=== PATIENT | female | born 1965 | race Hispanic/Latino ===

== ENCOUNTER 2019-06-02 22:13 | Emergency (ER) | payer SELFPAY | END 2019-06-02 23:04 | disposition home or self-care (01) | LOC: EDH 22:13 | DX: T16.1XXA Foreign body in right ear, initial encounter (principal); E11.9 Type 2 diabetes mellitus without complications; I10 Essential (primary) hypertension; X58.XXXA Exposure to other specified factors, initial encounter; Y93.89 Activity, other specified; Y92.89 Other specified places as the place of occurrence of the external cause; Y99.8 Other external cause status | CPT/HCPCS: 69200 ==

== ENCOUNTER 2022-12-22 10:14 | Inpatient (IN) | payer OTHER ==
[~2022-12-22] VITALS: Ht 152.4 cm; Wt 87.9 kg
[2022-12-22 11:11] LABS: BASOPHILS % (AUTO) 0.4 % (0.0-5.0); EOSINOPHILS % (AUTO) 2.2 % (0.0-8.0); HEMATOCRIT 37.7 % (36-48); LYMPHOCYTES % (AUTO) 13.3 % (21.0-51.0); MEAN CORPUSCULAR HEMOGLOBIN 27.2 pg (27.0-33.0); MEAN CORPUSCULAR HGB CONC 31.8 g/dL (32.0-36.0); MEAN CORPUSCULAR VOLUME 85.5 fL (79-99); MONOCYTES % (AUTO) 6.5 % (3.0-13.0); NEUTROPHILS % (AUTO) 77.3 % (40.0-77.0); PLATELET COUNT (AUTO) 272 K/uL (130-400); RED BLOOD CELL COUNT(AUTO) 4.41 MIL/uL (4.00-5.50); RED CELL DISTRIBUTION WIDTH 17.4 % (11.0-15.5); WHITE BLOOD COUNT (AUTO) 6.8 K/uL (4.8-10.8)
[2022-12-22 11:17] LABS: ALBUMIN 2.3 g/dL (3.5-5.0); TOTAL PROTEIN, SERUM 6.4 g/dL (6.0-8.3)
[2022-12-22 11:20] LABS: CREATININE 9.6 mg/dL (0.5-1.5)
[2022-12-22] MEDS ORDERED: FUROSEMIDE 40MG VIAL IV SCH ×2 (12:00→15:30)
[2022-12-22] MEDS ORDERED: ISOSORBIDE MONO 30MG SR TAB PO ONE (14:00)
[2022-12-22 14:40] LABS: INR 0.95 (0.85-1.15); PROTHROMBIN TIME 10.4 SEC (9.6-11.6)
[2022-12-22 15:16] LABS: THYROID STIMULATING HORMONE 4.95 uIU/mL (0.36-3.74)
[2022-12-22 15:17] LABS: ABG BASE EXCESS -6.7 mmol/L (-2.0-3.0); ABG HCO3 18.8 mmol/L (21.0-28.0); ABG OXYGEN SATURATION 94.8 % (95.0-99.0); ABG PCO2 38 mmHg (32-45)
[2022-12-22] MEDS: AMLODIPINE 5 MG TAB PO SCH ×2 (15:21→21:03)
[2022-12-22] MEDS: HYDRALAZINE 25MG TABLET PO SCH ×2 (15:21→21:21)
[2022-12-22] MEDS: METOLAZONE 2.5 MG TABLET PO SCH (15:21)
[2022-12-22] MEDS: NITROGLYCERIN 1GM OINT 1 INCH/1GM TD SCH ×2 (15:22→21:03)
[2022-12-22 15:43] LABS: APPEARANCE,URINE CLEAR (CLEAR); BILIRUBIN,URINE NEGATIVE (NEGATIVE); COLOR,URINE LIGHT-YELLOW (YELLOW); GLUCOSE, URINE (UA) 30 mg/dL (NEGATIVE); KETONES,URINE NEGATIVE (NEGATIVE); LEUKOCYTE ESTERASE ,URINE NEGATIVE Leu/uL (NEGATIVE); NITRATE,URINE NEGATIVE (NEGATIVE); OCCULT BLOOD,URINE SMALL (NEGATIVE); PH,URINE 6.5 (5.0-8.0); PROTEIN,URINE 200 mg/dL (NEGATIVE); UROBILINOGEN,URINE 0.2 mg/dL (0.2-1.0)
[2022-12-22 15:49] LABS: MUCUS,URINE RARE LPF (None Seen); SQUAMOUS EPITHELIAL CELL,UR RARE /HPF (0-2)
[2022-12-22] MEDS: FUROSEMIDE 40MG VIAL IV SCH (21:02)
[2022-12-22] MEDS: FAMOTIDINE 20MG TAB PO SCH (21:03)
[2022-12-22] MEDS: HEPARIN 5,000 UNIT VIAL SQ SCH (21:03)
[2022-12-23] VITALS (7 sets, daily range): BP systolic 143–164; BP diastolic 65–91
[2022-12-23] MEDS: FUROSEMIDE 40MG VIAL IV SCH ×3 (03:07→20:25)
[2022-12-23 03:51] LABS: BASOPHILS % (AUTO) 0.5 % (0.0-5.0); EOSINOPHILS % (AUTO) 2.3 % (0.0-8.0); HEMATOCRIT 34.4 % (36-48); LYMPHOCYTES % (AUTO) 15.2 % (21.0-51.0); MEAN CORPUSCULAR HEMOGLOBIN 27.2 pg (27.0-33.0); MEAN CORPUSCULAR HGB CONC 31.1 g/dL (32.0-36.0); MEAN CORPUSCULAR VOLUME 87.5 fL (79-99); MONOCYTES % (AUTO) 7.2 % (3.0-13.0); NEUTROPHILS % (AUTO) 74.3 % (40.0-77.0); PLATELET COUNT (AUTO) 237 K/uL (130-400); RED BLOOD CELL COUNT(AUTO) 3.93 MIL/uL (4.00-5.50); RED CELL DISTRIBUTION WIDTH 17.2 % (11.0-15.5); WHITE BLOOD COUNT (AUTO) 6.1 K/uL (4.8-10.8)
[2022-12-23 04:07] LABS: % IRON SATURATION 16.9 % (22-44)
[2022-12-23 04:22] LABS: ALBUMIN 2.2 g/dL (3.5-5.0); MAGNESIUM 2.7 mg/dL (1.80-2.40); PHOSPHORUS 7.4 mg/dL (2.5-4.9); TOTAL PROTEIN, SERUM 6.1 g/dL (6.0-8.3)
[2022-12-23 04:30] LABS: B-TYPE NATRIURETIC PEPTIDE 1330 pg/mL (0-100)
[2022-12-23 04:49] LABS: POTASSIUM 5.1 mmol/L (3.5-5.1)
[2022-12-23 04:51] LABS: CREATININE 9.5 mg/dL (0.5-1.5)
[2022-12-23] MEDS: NITROGLYCERIN 1GM OINT 1 INCH/1GM TD SCH ×2 (05:17→14:03)
[2022-12-23] MEDS: METOLAZONE 2.5 MG TABLET PO SCH (07:29)
[2022-12-23] MEDS: HEPARIN 5,000 UNIT VIAL SQ SCH ×2 (08:12→20:29)
[2022-12-23] MEDS: AMLODIPINE 5 MG TAB PO SCH ×2 (08:15→20:25)
[2022-12-23] MEDS: Vitamin B Complex/Vit C/Folic Acid PO SCH (08:15)
[2022-12-23] MEDS: ACETAMINOPHEN 325 MG TAB PO PRN (08:15)
[2022-12-23] MEDS: HYDRALAZINE 25MG TABLET PO SCH ×3 (08:15→20:26)
[2022-12-23] MEDS ORDERED: ISOSORBIDE MONO 30MG SR TAB PO SCH (09:00)
[2022-12-23] MEDS ORDERED: METOLAZONE 2.5 MG TABLET PO SCH (13:30)
[2022-12-23] MEDS: FAMOTIDINE 20MG TAB PO SCH (20:25)
[2022-12-23] MEDS ORDERED: FURO80TA3 PO (20:57)
[2022-12-23] MEDS ORDERED: HYDR-4153 PO (20:57)
[2022-12-23] MEDS ORDERED: SEVE800T7 PO (20:57)
[2022-12-23] MEDS ORDERED: AMLO-258 PO (20:57)
[2022-12-24] MEDS: FUROSEMIDE 40MG VIAL IV SCH ×3 (03:17→20:55)
[2022-12-24 03:37] VITALS: BP 150/79
[2022-12-24 03:50] LABS: BASOPHILS % (AUTO) 0.3 % (0.0-5.0); EOSINOPHILS % (AUTO) 2.7 % (0.0-8.0); HEMATOCRIT 37.1 % (36-48); LYMPHOCYTES % (AUTO) 15.8 % (21.0-51.0); MEAN CORPUSCULAR HEMOGLOBIN 27.2 pg (27.0-33.0); MEAN CORPUSCULAR VOLUME 87.7 fL (79-99); MONOCYTES % (AUTO) 7.1 % (3.0-13.0); NEUTROPHILS % (AUTO) 73.8 % (40.0-77.0); PLATELET COUNT (AUTO) 282 K/uL (130-400); RED BLOOD CELL COUNT(AUTO) 4.23 MIL/uL (4.00-5.50); RED CELL DISTRIBUTION WIDTH 17.4 % (11.0-15.5); WHITE BLOOD COUNT (AUTO) 6.3 K/uL (4.8-10.8)
[2022-12-24 04:00] LABS: POTASSIUM 5.3 mmol/L (3.5-5.1)
[2022-12-24 04:02] LABS: CREATININE 9.5 mg/dL (0.5-1.5)
[2022-12-24 08:42] VITALS: BP 153/77
[2022-12-24] MEDS ORDERED: ISOSORBIDE MONO 60MG SR TAB PO SCH (09:00)
[2022-12-24] MEDS: Vitamin B Complex/Vit C/Folic Acid PO SCH (09:09)
[2022-12-24] MEDS: AMLODIPINE 5 MG TAB PO SCH ×2 (09:09→20:56)
[2022-12-24] MEDS: NA ZIRCON CYCLOSIL(LOKELMA 10GM) PO SCH (09:09)
[2022-12-24] MEDS: HYDRALAZINE 25MG TABLET PO SCH ×3 (09:09→20:56)
[2022-12-24] MEDS: HEPARIN 5,000 UNIT VIAL SQ SCH ×2 (09:11→20:56)
[2022-12-24 12:43] VITALS: BP 170/77
[2022-12-24 16:31] VITALS: BP 162/73
[2022-12-24] MEDS ORDERED: SODIUM BICARBONATE 650 MG TAB PO SCH (17:00)
[2022-12-24] MEDS ORDERED: ISOSORBIDE MONO 30MG SR TAB PO SCH (17:00)
[2022-12-24] MEDS ORDERED: SODIUM BICARBONATE 650 MG TAB PO PRN (17:00)
[2022-12-24] MEDS: SEVELAMER HCL 800 MG TABLET PO SCH (17:29)
[2022-12-24 17:55] LABS: POTASSIUM 5.1 mmol/L (3.5-5.1)
[2022-12-24 17:58] LABS: CREATININE 9.7 mg/dL (0.5-1.5)
[2022-12-24] MEDS ORDERED: HYDRALAZINE 25MG TABLET ONE (19:48)
[2022-12-24 20:22] VITALS: BP 177/77
[2022-12-24] MEDS ORDERED: METOLAZONE 2.5 MG TABLET PO SCH (20:30)
[2022-12-24] MEDS: FAMOTIDINE 20MG TAB PO SCH (20:56)
[2022-12-24 23:53] VITALS: BP 174/79
[2022-12-25] VITALS (7 sets, daily range): BP systolic 144–180; BP diastolic 63–88
[2022-12-25 03:58] LABS: BASOPHILS % (AUTO) 0.6 % (0.0-5.0); EOSINOPHILS % (AUTO) 2.8 % (0.0-8.0); HEMATOCRIT 31.1 % (36-48); LYMPHOCYTES % (AUTO) 20.1 % (21.0-51.0); MEAN CORPUSCULAR HEMOGLOBIN 27.4 pg (27.0-33.0); MEAN CORPUSCULAR HGB CONC 30.9 g/dL (32.0-36.0); MEAN CORPUSCULAR VOLUME 88.9 fL (79-99); MONOCYTES % (AUTO) 7.5 % (3.0-13.0); NEUTROPHILS % (AUTO) 68.6 % (40.0-77.0); PLATELET COUNT (AUTO) 254 K/uL (130-400); RED CELL DISTRIBUTION WIDTH 17.6 % (11.0-15.5); WHITE BLOOD COUNT (AUTO) 5.1 K/uL (4.8-10.8)
[2022-12-25] MEDS: FUROSEMIDE 40MG VIAL IV SCH ×2 (04:04→11:32)
[2022-12-25 04:23] LABS: MAGNESIUM 2.7 mg/dL (1.80-2.40); PHOSPHORUS 7.8 mg/dL (2.5-4.9); TOTAL PROTEIN, SERUM 5.5 g/dL (6.0-8.3)
[2022-12-25 04:29] LABS: CREATININE 9.9 mg/dL (0.5-1.5)
[2022-12-25] MEDS: AMLODIPINE 5 MG TAB PO SCH ×2 (07:47→20:37)
[2022-12-25] MEDS: HYDRALAZINE 25MG TABLET PO SCH ×3 (09:47→20:36)
[2022-12-25] MEDS: Vitamin B Complex/Vit C/Folic Acid PO SCH (09:48)
[2022-12-25] MEDS: SEVELAMER HCL 800 MG TABLET PO SCH ×3 (09:48→17:29)
[2022-12-25] MEDS: ISOSORBIDE MONO 30MG SR TAB PO SCH (09:48)
[2022-12-25] MEDS: HEPARIN 5,000 UNIT VIAL SQ SCH ×2 (09:49→20:37)
[2022-12-25] MEDS: NA ZIRCON CYCLOSIL(LOKELMA 10GM) PO SCH (09:55)
[2022-12-25] MEDS: ACETAMINOPHEN 325 MG TAB PO PRN (10:08)
[2022-12-25] MEDS: CALCIUM AC 667MG CAP PO SCH (17:29)
[2022-12-25] MEDS: BUMETANIDE 2.5MG/10ML VIAL 40 ML IV SCH (17:48)
[2022-12-25] MEDS: CITRIC ACID/SODIUM CITRATE 30 ML UDCUP PO SCH (20:36)
[2022-12-25] MEDS: FAMOTIDINE 20MG TAB PO SCH (20:37)
[2022-12-26 04:09] LABS: MEAN CORPUSCULAR HEMOGLOBIN 27.4 pg (27.0-33.0); MEAN CORPUSCULAR HGB CONC 30.6 g/dL (32.0-36.0); MEAN CORPUSCULAR VOLUME 89.5 fL (79-99); PLATELET COUNT (AUTO) 281 K/uL (130-400); RED BLOOD CELL COUNT(AUTO) 3.91 MIL/uL (4.00-5.50); RED CELL DISTRIBUTION WIDTH 17.8 % (11.0-15.5); WHITE BLOOD COUNT (AUTO) 6.1 K/uL (4.8-10.8)
[2022-12-26 04:14] VITALS: BP 164/76
[2022-12-26 04:27] LABS: PHOSPHORUS 7.8 mg/dL (2.5-4.9); POTASSIUM 4.9 mmol/L (3.5-5.1); URIC ACID 11.5 mg/dL (2.6-7.2)
[2022-12-26 04:28] LABS: CREATININE 9.7 mg/dL (0.5-1.5)
[2022-12-26 05:44] LABS: EOSINOPHILS % (MANUAL) 4 % (1-6); LYMPHOCYTES % (MANUAL) 20 % (22-44); MAN.DIFF COMMENT-IMPRESSION MANUAL DIFFERENTIAL; MONOCYTES % (MANUAL) 1 % (2-9); PLATELET MORPHOLOGY COMMENT ADEQUATE; SEGMENTED NEUTROPHILS % 75 % (40-70)
[2022-12-26 07:35] VITALS: BP 183/76
[2022-12-26] MEDS: NA ZIRCON CYCLOSIL(LOKELMA 10GM) PO SCH (08:00)
[2022-12-26] MEDS: ISOSORBIDE MONO 30MG SR TAB PO SCH (08:37)
[2022-12-26] MEDS: CALCIUM AC 667MG CAP PO SCH ×3 (08:38→17:41)
[2022-12-26] MEDS: SEVELAMER HCL 800 MG TABLET PO SCH ×3 (08:38→17:00)
[2022-12-26] MEDS: HYDRALAZINE 25MG TABLET PO SCH ×3 (08:39→20:59)
[2022-12-26] MEDS: CITRIC ACID/SODIUM CITRATE 30 ML UDCUP PO SCH ×3 (08:39→20:59)
[2022-12-26] MEDS: AMLODIPINE 5 MG TAB PO SCH ×2 (08:39→20:59)
[2022-12-26] MEDS: Vitamin B Complex/Vit C/Folic Acid PO SCH (08:39)
[2022-12-26] MEDS: ONDANSETRON 4MG INJ IV PRN ×2 (08:48→14:18)
[2022-12-26] MEDS: HEPARIN 5,000 UNIT VIAL SQ SCH ×2 (08:56→21:01)
[2022-12-26] MEDS: BUMETANIDE 2.5MG/10ML VIAL 40 ML IV SCH (09:48)
[2022-12-26 11:38] VITALS: BP 144/68
[2022-12-26] MEDS ORDERED: METOLAZONE 2.5 MG TABLET PO SCH (15:00)
[2022-12-26 15:25] VITALS: BP 151/68
[2022-12-26] MEDS ORDERED: COLCHICINE 0.6 MG TABLET PO SCH (17:30)
[2022-12-26] MEDS ORDERED: COLCHICINE 0.6 MG TABLET ONE (17:40)
[2022-12-26 20:12] VITALS: BP 167/76
[2022-12-26] MEDS: FAMOTIDINE 20MG TAB PO SCH (20:59)
[2022-12-26 23:48] VITALS: BP 171/78
[2022-12-27 04:09] LABS: HEMATOCRIT 31.8 % (36-48); MEAN CORPUSCULAR HEMOGLOBIN 27.4 pg (27.0-33.0); MEAN CORPUSCULAR HGB CONC 31.8 g/dL (32.0-36.0); MEAN CORPUSCULAR VOLUME 86.4 fL (79-99); RED BLOOD CELL COUNT(AUTO) 3.68 MIL/uL (4.00-5.50); RED CELL DISTRIBUTION WIDTH 17.5 % (11.0-15.5); WHITE BLOOD COUNT (AUTO) 5.8 K/uL (4.8-10.8)
[2022-12-27 04:52] LABS: MAGNESIUM 2.8 mg/dL (1.80-2.40); PHOSPHORUS 7.7 mg/dL (2.5-4.9); POTASSIUM 4.4 mmol/L (3.5-5.1); THYROID STIMULATING HORMONE 4.44 uIU/mL (0.36-3.74)
[2022-12-27 05:00] LABS: CREATININE 9.9 mg/dL (0.5-1.5)
[2022-12-27 05:13] VITALS: BP 175/73
[2022-12-27] MEDS: NA ZIRCON CYCLOSIL(LOKELMA 10GM) PO SCH (07:18)
[2022-12-27] MEDS: BUMETANIDE 2.5MG/10ML VIAL 40 ML IV SCH (07:21)
[2022-12-27 07:36] VITALS: BP 152/72
[2022-12-27] MEDS: SEVELAMER HCL 800 MG TABLET PO SCH ×3 (08:42→16:43)
[2022-12-27] MEDS: Vitamin B Complex/Vit C/Folic Acid PO SCH (08:42)
[2022-12-27] MEDS: CALCIUM AC 667MG CAP PO SCH ×3 (08:42→16:43)
[2022-12-27] MEDS: CITRIC ACID/SODIUM CITRATE 30 ML UDCUP PO SCH ×3 (08:43→20:29)
[2022-12-27] MEDS: AMLODIPINE 5 MG TAB PO SCH ×2 (08:43→20:30)
[2022-12-27] MEDS: HYDRALAZINE 25MG TABLET PO SCH ×3 (08:43→20:32)
[2022-12-27] MEDS: ISOSORBIDE MONO 30MG SR TAB PO SCH (08:43)
[2022-12-27] MEDS: ACETAMINOPHEN 325 MG TAB PO PRN ×2 (08:44→20:32)
[2022-12-27] MEDS: HEPARIN 5,000 UNIT VIAL SQ SCH ×2 (08:58→20:30)
[2022-12-27] MEDS ORDERED: IRON SUCROSE COMPLEX 200 MG in 0.9%NACL 50ML 50 ML IV SCH (09:00)
[2022-12-27] MEDS: IRON SUCROSE COMPLEX 100 MG/5 ML VIAL IVP SCH (09:19)
[2022-12-27] MEDS: ONDANSETRON 4MG INJ IV PRN (09:59)
[2022-12-27 11:20] VITALS: BP 164/71
[2022-12-27 16:30] VITALS: BP 159/68
[2022-12-27 19:20] VITALS: BP 175/82
[2022-12-27] MEDS: FAMOTIDINE 20MG TAB PO SCH (20:32)
[2022-12-27 23:41] VITALS: BP 155/72
[2022-12-28] VITALS (7 sets, daily range): BP systolic 148–178; BP diastolic 77–90
[2022-12-28] MEDS: ACETAMINOPHEN 325 MG TAB PO PRN ×2 (03:34→09:16)
[2022-12-28 04:13] LABS: BASOPHILS % (AUTO) 0.5 % (0.0-5.0); EOSINOPHILS % (AUTO) 1.8 % (0.0-8.0); HEMATOCRIT 32.4 % (36-48); LYMPHOCYTES % (AUTO) 19.3 % (21.0-51.0); MEAN CORPUSCULAR HEMOGLOBIN 27.3 pg (27.0-33.0); MEAN CORPUSCULAR HGB CONC 32.4 g/dL (32.0-36.0); MEAN CORPUSCULAR VOLUME 84.2 fL (79-99); MONOCYTES % (AUTO) 6.9 % (3.0-13.0); NEUTROPHILS % (AUTO) 71.2 % (40.0-77.0); PLATELET COUNT (AUTO) 287 K/uL (130-400); RED BLOOD CELL COUNT(AUTO) 3.85 MIL/uL (4.00-5.50); RED CELL DISTRIBUTION WIDTH 17.6 % (11.0-15.5); WHITE BLOOD COUNT (AUTO) 6.1 K/uL (4.8-10.8)
[2022-12-28 04:46] LABS: ALBUMIN 2.1 g/dL (3.5-5.0); MAGNESIUM 2.8 mg/dL (1.80-2.40); PHOSPHORUS 7.8 mg/dL (2.5-4.9); POTASSIUM 4.5 mmol/L (3.5-5.1); TOTAL PROTEIN, SERUM 5.8 g/dL (6.0-8.3)
[2022-12-28 04:47] LABS: CREATININE 10.3 mg/dL (0.5-1.5)
[2022-12-28 05:06] LABS: B-TYPE NATRIURETIC PEPTIDE 1220 pg/mL (0-100)
[2022-12-28] MEDS: CALCIUM AC 667MG CAP PO SCH ×3 (09:04→16:24)
[2022-12-28] MEDS: SEVELAMER HCL 800 MG TABLET PO SCH ×3 (09:05→16:24)
[2022-12-28] MEDS: CITRIC ACID/SODIUM CITRATE 30 ML UDCUP PO SCH ×3 (09:05→20:43)
[2022-12-28] MEDS: HYDRALAZINE 25MG TABLET PO SCH ×3 (09:05→20:43)
[2022-12-28] MEDS: IRON SUCROSE COMPLEX 100 MG/5 ML VIAL IVP SCH (09:05)
[2022-12-28] MEDS: AMLODIPINE 5 MG TAB PO SCH ×2 (09:06→20:43)
[2022-12-28] MEDS: ISOSORBIDE MONO 30MG SR TAB PO SCH (09:06)
[2022-12-28] MEDS: HEPARIN 5,000 UNIT VIAL SQ SCH ×2 (09:07→20:42)
[2022-12-28] MEDS: NA ZIRCON CYCLOSIL(LOKELMA 10GM) PO SCH (09:15)
[2022-12-28] MEDS: Vitamin B Complex/Vit C/Folic Acid PO SCH (09:15)
[2022-12-28] MEDS: ONDANSETRON 4MG INJ IV PRN ×2 (09:38→17:38)
[2022-12-28] MEDS: FAMOTIDINE 20MG TAB PO SCH (20:43)
[2022-12-29] VITALS (23 sets, daily range): BP systolic 155–189; BP diastolic 70–81
[2022-12-29 04:29] LABS: BASOPHILS % (AUTO) 0.4 % (0.0-5.0); EOSINOPHILS % (AUTO) 1.9 % (0.0-8.0); HEMATOCRIT 34.9 % (36-48); MEAN CORPUSCULAR HGB CONC 31.2 g/dL (32.0-36.0); MEAN CORPUSCULAR VOLUME 86.4 fL (79-99); MONOCYTES % (AUTO) 6.8 % (3.0-13.0); NEUTROPHILS % (AUTO) 74.3 % (40.0-77.0); PLATELET COUNT (AUTO) 288 K/uL (130-400); RED BLOOD CELL COUNT(AUTO) 4.04 MIL/uL (4.00-5.50); RED CELL DISTRIBUTION WIDTH 17.4 % (11.0-15.5); WHITE BLOOD COUNT (AUTO) 7.2 K/uL (4.8-10.8)
[2022-12-29 04:31] LABS: HEMOGLOBIN A1C 6.8 % (4.0-6.0)
[2022-12-29 04:33] LABS: INR 0.96 (0.85-1.15); PROTHROMBIN TIME 10.5 SEC (9.6-11.6)
[2022-12-29 04:34] LABS: PARTIAL THROMBOPLASTIN TIME 36.1 SEC (26.3-35.5)
[2022-12-29 04:59] LABS: ALBUMIN 2.1 g/dL (3.5-5.0); MAGNESIUM 2.8 mg/dL (1.80-2.40); PHOSPHORUS 7.9 mg/dL (2.5-4.9); POTASSIUM 4.2 mmol/L (3.5-5.1); TOTAL PROTEIN, SERUM 5.9 g/dL (6.0-8.3)
[2022-12-29 05:27] LABS: CREATININE 10.5 mg/dL (0.5-1.5)
[2022-12-29] MEDS: SEVELAMER HCL 800 MG TABLET PO SCH ×3 (08:00→17:00)
[2022-12-29] MEDS: CALCIUM AC 667MG CAP PO SCH ×3 (08:00→17:00)
[2022-12-29] MEDS: NA ZIRCON CYCLOSIL(LOKELMA 10GM) PO SCH (08:00)
[2022-12-29] MEDS: ISOSORBIDE MONO 60MG SR TAB PO SCH (09:00)
[2022-12-29] MEDS: HEPARIN 5,000 UNIT VIAL SQ SCH ×2 (09:00→19:54)
[2022-12-29] MEDS: CITRIC ACID/SODIUM CITRATE 30 ML UDCUP PO SCH ×3 (09:00→19:57)
[2022-12-29] MEDS: Vitamin B Complex/Vit C/Folic Acid PO SCH (09:00)
[2022-12-29] MEDS: AMLODIPINE 5 MG TAB PO SCH ×2 (09:50→19:56)
[2022-12-29] MEDS: HYDRALAZINE 25MG TABLET PO SCH ×3 (09:50→19:56)
[2022-12-29] MEDS: IRON SUCROSE COMPLEX 100 MG/5 ML VIAL IVP SCH (09:59)
[2022-12-29] MEDS ORDERED: HEPARIN 1,000 UNIT VIAL ONE (14:43)
[2022-12-29] MEDS ORDERED: LIDOCAINE HCL 400MG/20ML VIAL ONE (14:44)
[2022-12-29 17:54] LABS: HEMATOCRIT 36.7 % (36-48)
[2022-12-29 18:12] LABS: ALBUMIN 2.5 g/dL (3.5-5.0); CREATININE 1.5 mg/dL (0.5-1.5)
[2022-12-29 18:21] LABS: % IRON SATURATION 103.4 % (22-44)
[2022-12-29] MEDS: FAMOTIDINE 20MG TAB PO SCH (19:57)
[2022-12-30] VITALS (20 sets, daily range): BP systolic 167–195; BP diastolic 73–87
[2022-12-30 00:31] LABS: HEPATITIS B SURFACE ANTIGEN Non-Reactive (Nonreactive)
[2022-12-30 03:52] LABS: BASOPHILS % (AUTO) 0.6 % (0.0-5.0); EOSINOPHILS % (AUTO) 3.1 % (0.0-8.0); HEMATOCRIT 34.5 % (36-48); LYMPHOCYTES % (AUTO) 12.6 % (21.0-51.0); MEAN CORPUSCULAR HEMOGLOBIN 27.5 pg (27.0-33.0); MEAN CORPUSCULAR HGB CONC 31.6 g/dL (32.0-36.0); MEAN CORPUSCULAR VOLUME 86.9 fL (79-99); MONOCYTES % (AUTO) 7.1 % (3.0-13.0); NEUTROPHILS % (AUTO) 75.9 % (40.0-77.0); PLATELET COUNT (AUTO) 263 K/uL (130-400); RED BLOOD CELL COUNT(AUTO) 3.97 MIL/uL (4.00-5.50); RED CELL DISTRIBUTION WIDTH 17.3 % (11.0-15.5); WHITE BLOOD COUNT (AUTO) 7.1 K/uL (4.8-10.8)
[2022-12-30 04:06] LABS: MAGNESIUM 2.6 mg/dL (1.80-2.40); POTASSIUM 3.8 mmol/L (3.5-5.1)
[2022-12-30 04:15] LABS: CREATININE 8.7 mg/dL (0.5-1.5)
[2022-12-30] MEDS: NA ZIRCON CYCLOSIL(LOKELMA 10GM) PO SCH ×2 (08:00→19:07)
[2022-12-30] MEDS: ISOSORBIDE MONO 60MG SR TAB PO SCH (08:02)
[2022-12-30] MEDS: SEVELAMER HCL 800 MG TABLET PO SCH ×3 (08:03→16:17)
[2022-12-30] MEDS: AMLODIPINE 5 MG TAB PO SCH ×2 (08:03→19:31)
[2022-12-30] MEDS: Vitamin B Complex/Vit C/Folic Acid PO SCH (08:03)
[2022-12-30] MEDS: CALCIUM AC 667MG CAP PO SCH ×3 (08:03→16:17)
[2022-12-30] MEDS: HEPARIN 5,000 UNIT VIAL SQ SCH ×2 (08:04→19:31)
[2022-12-30] MEDS: IRON SUCROSE COMPLEX 100 MG/5 ML VIAL IVP SCH (08:05)
[2022-12-30] MEDS: CITRIC ACID/SODIUM CITRATE 30 ML UDCUP PO SCH ×3 (08:08→19:31)
[2022-12-30] MEDS: HYDRALAZINE 25MG TABLET PO SCH ×3 (08:09→19:30)
[2022-12-30] MEDS: LOSARTAN 50 MG TABLET PO SCH ×2 (13:07→19:31)
[2022-12-30] MEDS ORDERED: HYDRALAZINE 20MG/ML VIAL IV PRN (16:30)
[2022-12-30] MEDS: LABETALOL 20MG VIAL IV PRN (17:26)
[2022-12-30] MEDS ORDERED: HEPARIN 5,000 UNIT VIAL IJ SCH (18:00)
[2022-12-30] MEDS: FAMOTIDINE 20MG TAB PO SCH (19:31)
[2022-12-31] VITALS (20 sets, daily range): BP systolic 120–178; BP diastolic 63–86
[2022-12-31] MEDS: LABETALOL 20MG VIAL IV PRN (04:20)
[2022-12-31 04:32] LABS: BASOPHILS % (AUTO) 0.3 % (0.0-5.0); EOSINOPHILS % (AUTO) 2.3 % (0.0-8.0); HEMATOCRIT 34.9 % (36-48); LYMPHOCYTES % (AUTO) 14.6 % (21.0-51.0); MEAN CORPUSCULAR HEMOGLOBIN 27.5 pg (27.0-33.0); MEAN CORPUSCULAR HGB CONC 31.5 g/dL (32.0-36.0); MEAN CORPUSCULAR VOLUME 87.3 fL (79-99); MONOCYTES % (AUTO) 7.4 % (3.0-13.0); NEUTROPHILS % (AUTO) 75.1 % (40.0-77.0); PLATELET COUNT (AUTO) 244 K/uL (130-400); RED CELL DISTRIBUTION WIDTH 17.5 % (11.0-15.5); WHITE BLOOD COUNT (AUTO) 6.9 K/uL (4.8-10.8)
[2022-12-31 04:44] LABS: CREATININE 7.1 mg/dL (0.5-1.5); POTASSIUM 3.8 mmol/L (3.5-5.1)
[2022-12-31] MEDS: HYDRALAZINE 25MG TABLET PO SCH ×2 (09:00→13:08)
[2022-12-31] MEDS: Vitamin B Complex/Vit C/Folic Acid PO SCH (09:00)
[2022-12-31] MEDS: CALCIUM AC 667MG CAP PO SCH ×2 (09:01→11:14)
[2022-12-31] MEDS: ISOSORBIDE MONO 60MG SR TAB PO SCH (09:01)
[2022-12-31] MEDS: AMLODIPINE 5 MG TAB PO SCH (09:01)
[2022-12-31] MEDS: SEVELAMER HCL 800 MG TABLET PO SCH ×2 (09:01→11:14)
[2022-12-31] MEDS: LOSARTAN 50 MG TABLET PO SCH (09:01)
[2022-12-31] MEDS: IRON SUCROSE COMPLEX 100 MG/5 ML VIAL IVP SCH (09:01)
[2022-12-31] MEDS: CITRIC ACID/SODIUM CITRATE 30 ML UDCUP PO SCH ×2 (09:02→13:08)
[2022-12-31] MEDS: HEPARIN 5,000 UNIT VIAL SQ SCH (09:10)
[2022-12-31] MEDS ORDERED: HEPARIN 5,000 UNIT VIAL IJ SCH (14:00)
[2022-12-31] MEDS ORDERED: HYDR25 PO (17:32)
[2022-12-31] MEDS ORDERED: CALC667C10 PO (17:32)
[2022-12-31] MEDS ORDERED: SEVE800 PO (17:32)
[2022-12-31] MEDS ORDERED: ISOS120T14 PO (17:32)
[2022-12-31] MEDS ORDERED: LOSA50TA2 PO (17:32)
== END 2022-12-31 19:37 | disposition home or self-care (01) | DRG 304 ==
LOC: EDH 10:14 → EDHIP 10:15 → 2AH 12-23 02:15 → 4AH 12-30 18:15
PROVIDERS: ADMIT Internal Medicine; ATTEND Internal Medicine
PROC: 02HV33Z Insertion of Infusion Device into Superior Vena Cava, Percutaneous Approach (ICD-10-PCS; principal; 2022-12-29)
PROC: B548ZZA Ultrasonography of Superior Vena Cava, Guidance (ICD-10-PCS; 2022-12-29)
PROC: 5A1D70Z Performance of Urinary Filtration, Intermittent, Less than 6 Hours Per Day (ICD-10-PCS; 2022-12-29)
PROC: 5A1D70Z Performance of Urinary Filtration, Intermittent, Less than 6 Hours Per Day (ICD-10-PCS; 2022-12-30)
PROC: 5A1D70Z Performance of Urinary Filtration, Intermittent, Less than 6 Hours Per Day (ICD-10-PCS; 2022-12-31)
DX: I16.0 Hypertensive urgency (principal); N18.6 End stage renal disease; E87.20 Acidosis, unspecified; N25.81 Secondary hyperparathyroidism of renal origin; Z20.822 Contact with and (suspected) exposure to COVID-19; I50.42 Chronic combined systolic (congestive) and diastolic (congestive) heart failure; J10.1 Influenza due to other identified influenza virus with other respiratory manifestations; I13.2 Hypertensive heart and chronic kidney disease with heart failure and with stage 5 chronic kidney disease, or end stage renal disease; E11.22 Type 2 diabetes mellitus with diabetic chronic kidney disease; E78.00 Pure hypercholesterolemia, unspecified; E66.01 Morbid (severe) obesity due to excess calories; E87.5 Hyperkalemia; Z98.891 History of uterine scar from previous surgery; Z68.37 Body mass index [BMI] 37.0-37.9, adult; D64.9 Anemia, unspecified; Z79.899 Other long term (current) drug therapy; Z91.199 Patient's noncompliance with other medical treatment and regimen due to unspecified reason; Z99.2 Dependence on renal dialysis
CPT/HCPCS: 36415; 36556; 36600; 71045; 77001; 80048; 80053; 80061; 81001; 82040; 82550; 82565; 82607; 82728; 82746; 82803; 82948; 83036; 83540; 83550; 83735; 83874; 83880; 84100; 84145; 84443; 84484; 84520; 84550; 85014; 85018; 85025; 85027; 85045; 85610; 85730; 86701; 86704; 86706; 87340; 87390; 87635; 87804; 87880; 90935; 93005; 93306; 93356; 97039; C1752; G0378; J0360; J1644; J1756; J1940; J2405; J3490

== ENCOUNTER 2023-02-25 03:56 | Inpatient (IN) | payer OTHER ==
[~2023-02-25] VITALS: Ht 157.5 cm; Wt 100.5 kg
[~2023-02-25 03:56] MED LIST: AMLO-258 PO; CALC667C10 PO; FURO80TA3 PO; HYDR-4153 PO; HYDR25 PO; ISOS120T14 PO; LOSA50TA2 PO; SEVE800 PO; SEVE800T7 PO
[2023-02-25] MEDS ORDERED: HYDRALAZINE 20MG/ML VIAL IV ONE (04:30)
[2023-02-25 04:36] LABS: BASOPHILS % (AUTO) 0.5 % (0.0-5.0); HEMATOCRIT 37.6 % (36-48); MEAN CORPUSCULAR HEMOGLOBIN 28.6 pg (27.0-33.0); MEAN CORPUSCULAR HGB CONC 31.9 g/dL (32.0-36.0); MEAN CORPUSCULAR VOLUME 89.5 fL (79-99); MONOCYTES % (AUTO) 5.5 % (3.0-13.0); NEUTROPHILS % (AUTO) 77.7 % (40.0-77.0); PLATELET COUNT (AUTO) 339 K/uL (130-400); RED CELL DISTRIBUTION WIDTH 17.5 % (11.0-15.5)
[2023-02-25 04:45] LABS: ALBUMIN 2.8 g/dL (3.5-5.0); POTASSIUM 4.1 mmol/L (3.5-5.1); TOTAL PROTEIN, SERUM 6.6 g/dL (6.0-8.3)
[2023-02-25 04:59] LABS: CREATININE 8.9 mg/dL (0.5-1.5)
[2023-02-25] MEDS ORDERED: HYDRALAZINE 20MG/ML VIAL IV PRN (07:00)
[2023-02-25] MEDS: FUROSEMIDE 40MG VIAL IV SCH ×2 (08:23→19:00)
[2023-02-25] MEDS: HEPARIN 5,000 UNIT VIAL SQ SCH (08:24)
[2023-02-25] MEDS: FAMOTIDINE 20MG TAB PO SCH (08:24)
[2023-02-25] MEDS: AMLODIPINE 5 MG TAB PO SCH (08:24)
[2023-02-25] MEDS: SEVELAMER HCL 800 MG TABLET PO SCH ×3 (08:24→18:54)
[2023-02-25] MEDS: HYDRALAZINE 25MG TABLET PO SCH ×3 (08:24→20:53)
[2023-02-25] MEDS ORDERED: ONDANSETRON 4MG INJ IVP PRN (11:30)
[2023-02-25 16:25] VITALS: BP 162/84
[2023-02-25] MEDS ORDERED: LABETALOL 20MG VIAL IV PRN (17:00)
[2023-02-25] MEDS ORDERED: TRAMADOL HCL 50 MG TABLET PO PRN (17:00)
[2023-02-25] MEDS ORDERED: ACETAMINOPHEN 325 MG TAB PO PRN (17:00)
[2023-02-25 19:15] VITALS: BP 164/88
[2023-02-25] MEDS ORDERED: HYDR-4153 PO (19:52)
[2023-02-25] MEDS ORDERED: LOSA50TA64 PO (19:52)
[2023-02-25] MEDS ORDERED: ONDA22I PO (19:52)
[2023-02-25] MEDS ORDERED: NITR0.4T50 SL (19:52)
[2023-02-25] MEDS ORDERED: ISOS10TA8 PO (19:52)
[2023-02-25] MEDS ORDERED: METH-811 PO (19:52)
[2023-02-25] MEDS ORDERED: CARV12.511 PO (19:52)
[2023-02-25] MEDS ORDERED: FUROSEMIDE 100MG VIAL IVP ONE (21:00)
[2023-02-25 23:10] VITALS: BP 144/77
[2023-02-26 03:18] VITALS: BP 141/78
[2023-02-26] MEDS: ONDANSETRON 4MG INJ IVP PRN ×2 (05:43→09:18)
[2023-02-26 06:20] LABS: BASOPHILS % (AUTO) 0.5 % (0.0-5.0); EOSINOPHILS % (AUTO) 2.8 % (0.0-8.0); LYMPHOCYTES % (AUTO) 11.5 % (21.0-51.0); MEAN CORPUSCULAR HGB CONC 31.6 g/dL (32.0-36.0); MEAN CORPUSCULAR VOLUME 91.6 fL (79-99); MONOCYTES % (AUTO) 7.1 % (3.0-13.0); NEUTROPHILS % (AUTO) 77.8 % (40.0-77.0); PLATELET COUNT (AUTO) 330 K/uL (130-400); RED BLOOD CELL COUNT(AUTO) 4.04 MIL/uL (4.00-5.50); RED CELL DISTRIBUTION WIDTH 17.4 % (11.0-15.5); WHITE BLOOD COUNT (AUTO) 6.4 K/uL (4.8-10.8)
[2023-02-26 06:30] LABS: ALBUMIN 2.5 g/dL (3.5-5.0); ASPARTATE AMINOTRANSFERASE 14 U/L (10-37); CARBON DIOXIDE 19 mmol/L (21-32); CHLORIDE 107 mmol/L (101-111); GLOMERULAR FILTR. RATE CALC 5 mL/min (>90); GLUCOSE,RANDOM 104 mg/dL (70-105); PHOSPHORUS 8.5 mg/dL (2.5-4.9); POTASSIUM 3.9 mmol/L (3.5-5.1); SODIUM SERUM 141 mmol/L (136-145); TOTAL PROTEIN, SERUM 6.1 g/dL (6.0-8.3); URIC ACID 11.5 mg/dL (2.6-7.2)
[2023-02-26 06:43] LABS: ALANINE AMINOTRANSFERASE < 6 U/L (12-78)
[2023-02-26 06:44] LABS: CREATININE 9.2 mg/dL (0.5-1.5); UREA NITROGEN, BLOOD 97 mg/dL (7-18)
[2023-02-26] MEDS: FUROSEMIDE 40MG VIAL IV SCH ×2 (07:00→22:31)
[2023-02-26 07:27] VITALS: BP 145/79
[2023-02-26] MEDS: SEVELAMER HCL 800 MG TABLET PO SCH ×3 (08:35→17:30)
[2023-02-26] MEDS: Vitamin B Complex/Vit C/Folic Acid PO SCH (08:36)
[2023-02-26] MEDS: AMLODIPINE 5 MG TAB PO SCH (08:37)
[2023-02-26] MEDS: FAMOTIDINE 20MG TAB PO SCH (08:37)
[2023-02-26] MEDS: HYDRALAZINE 25MG TABLET PO SCH ×3 (08:38→22:30)
[2023-02-26] MEDS ORDERED: FAMOTIDINE 20MG TAB PO ONE (09:00)
[2023-02-26] MEDS ORDERED: FUROSEMIDE 20MG VIAL IV SCH (10:00)
[2023-02-26 11:51] VITALS: BP 135/71
[2023-02-26 15:30] VITALS: BP 144/72
[2023-02-26 15:59] VITALS: BP 129/70
[2023-02-26] MEDS: INSULIN HUMULIN R 100 UNIT/ML 3ML SQ SCH ×2 (16:30→19:39)
[2023-02-26 19:00] VITALS: BP 153/83
[2023-02-27] VITALS (7 sets, daily range): BP systolic 143–163; BP diastolic 69–84
[2023-02-27 05:04] LABS: HEMATOCRIT 36.1 % (36-48); MEAN CORPUSCULAR HEMOGLOBIN 28.9 pg (27.0-33.0); MEAN CORPUSCULAR HGB CONC 31.6 g/dL (32.0-36.0); MEAN CORPUSCULAR VOLUME 91.4 fL (79-99); PLATELET COUNT (AUTO) 349 K/uL (130-400); RED BLOOD CELL COUNT(AUTO) 3.95 MIL/uL (4.00-5.50); RED CELL DISTRIBUTION WIDTH 17.6 % (11.0-15.5); WHITE BLOOD COUNT (AUTO) 6.1 K/uL (4.8-10.8)
[2023-02-27 05:23] LABS: EOSINOPHILS % (MANUAL) 4 % (1-6); LYMPHOCYTES % (MANUAL) 16 % (22-44); MAN.DIFF COMMENT-IMPRESSION MANUAL DIFFERENTIAL; PLATELET MORPHOLOGY COMMENT ADEQUATE; SEGMENTED NEUTROPHILS % 80 % (40-70)
[2023-02-27 05:47] LABS: ALBUMIN 2.6 g/dL (3.5-5.0); ASPARTATE AMINOTRANSFERASE 14 U/L (10-37); CARBON DIOXIDE 18 mmol/L (21-32); CHLORIDE 106 mmol/L (101-111); GLOMERULAR FILTR. RATE CALC 5 mL/min (>90); GLUCOSE,RANDOM 95 mg/dL (70-105); PHOSPHORUS 8.6 mg/dL (2.5-4.9); POTASSIUM 3.9 mmol/L (3.5-5.1); SODIUM SERUM 141 mmol/L (136-145); TOTAL PROTEIN, SERUM 6.2 g/dL (6.0-8.3)
[2023-02-27] MEDS: INSULIN HUMULIN R 100 UNIT/ML 3ML SQ SCH ×4 (05:53→20:42)
[2023-02-27 06:17] LABS: ALANINE AMINOTRANSFERASE < 6 U/L (12-78)
[2023-02-27 06:19] LABS: CREATININE 9.2 mg/dL (0.5-1.5); UREA NITROGEN, BLOOD 96 mg/dL (7-18)
[2023-02-27] MEDS: HEPARIN 5,000 UNIT VIAL SQ SCH ×2 (07:00→18:39)
[2023-02-27] MEDS: SEVELAMER HCL 800 MG TABLET PO SCH ×3 (08:34→16:58)
[2023-02-27] MEDS: Vitamin B Complex/Vit C/Folic Acid PO SCH (08:34)
[2023-02-27] MEDS: AMLODIPINE 5 MG TAB PO SCH (08:34)
[2023-02-27] MEDS: FAMOTIDINE 20MG TAB PO SCH (08:34)
[2023-02-27] MEDS: HYDRALAZINE 25MG TABLET PO SCH ×3 (08:35→20:42)
[2023-02-27] MEDS: FUROSEMIDE 40MG VIAL IV SCH ×2 (08:37→20:41)
[2023-02-27] MEDS ORDERED: METOLAZONE 2.5 MG TABLET PO SCH (15:00)
[2023-02-28 04:00] VITALS: BP 157/85
[2023-02-28] MEDS: INSULIN HUMULIN R 100 UNIT/ML 3ML SQ SCH ×2 (06:13→11:30)
[2023-02-28] MEDS: HEPARIN 5,000 UNIT VIAL SQ SCH ×2 (06:13→07:00)
[2023-02-28 06:45] LABS: BASOPHILS % (AUTO) 0.5 % (0.0-5.0); EOSINOPHILS % (AUTO) 4.1 % (0.0-8.0); LYMPHOCYTES % (AUTO) 11.3 % (21.0-51.0); MEAN CORPUSCULAR HEMOGLOBIN 28.8 pg (27.0-33.0); MEAN CORPUSCULAR HGB CONC 31.4 g/dL (32.0-36.0); MEAN CORPUSCULAR VOLUME 91.8 fL (79-99); MONOCYTES % (AUTO) 6.3 % (3.0-13.0); NEUTROPHILS % (AUTO) 77.5 % (40.0-77.0); PLATELET COUNT (AUTO) 333 K/uL (130-400); RED BLOOD CELL COUNT(AUTO) 4.03 MIL/uL (4.00-5.50); RED CELL DISTRIBUTION WIDTH 17.8 % (11.0-15.5); WHITE BLOOD COUNT (AUTO) 6.4 K/uL (4.8-10.8)
[2023-02-28] MEDS ORDERED: SEVE800 PO (07:04)
[2023-02-28 08:36] VITALS: BP 149/83
[2023-02-28] MEDS: AMLODIPINE 5 MG TAB PO SCH (08:43)
[2023-02-28] MEDS: FUROSEMIDE 40MG VIAL IV SCH (08:43)
[2023-02-28] MEDS: SEVELAMER HCL 800 MG TABLET PO SCH ×2 (08:44→13:02)
[2023-02-28] MEDS: HYDRALAZINE 25MG TABLET PO SCH (08:44)
[2023-02-28] MEDS: Vitamin B Complex/Vit C/Folic Acid PO SCH (08:44)
[2023-02-28] MEDS: FAMOTIDINE 20MG TAB PO SCH (08:44)
[2023-02-28 09:35] LABS: PHOSPHORUS 8.3 mg/dL (2.5-4.9); POTASSIUM 3.9 mmol/L (3.5-5.1)
[2023-02-28 09:37] LABS: CREATININE 9.5 mg/dL (0.5-1.5)
[2023-02-28 12:33] VITALS: BP 165/93
== END 2023-02-28 14:20 | disposition home or self-care (01) | DRG 189 ==
LOC: EDH 03:56 → EDHIP 03:57 → WSH 16:20 → 3CH 02-26 17:30
PROVIDERS: ADMIT Hospitalist; ATTEND Hospitalist
DX: J96.01 Acute respiratory failure with hypoxia (principal); E43 Unspecified severe protein-calorie malnutrition; N18.6 End stage renal disease; I50.42 Chronic combined systolic (congestive) and diastolic (congestive) heart failure; Z68.41 Body mass index [BMI] 40.0-44.9, adult; I13.2 Hypertensive heart and chronic kidney disease with heart failure and with stage 5 chronic kidney disease, or end stage renal disease; I16.0 Hypertensive urgency; E78.00 Pure hypercholesterolemia, unspecified; D64.9 Anemia, unspecified; F32.A Depression, unspecified; F41.9 Anxiety disorder, unspecified; E11.22 Type 2 diabetes mellitus with diabetic chronic kidney disease; E66.01 Morbid (severe) obesity due to excess calories; J45.20 Mild intermittent asthma, uncomplicated; W18.39XA Other fall on same level, initial encounter; Y93.89 Activity, other specified; Y92.89 Other specified places as the place of occurrence of the external cause; Y99.8 Other external cause status; Z79.899 Other long term (current) drug therapy; Z91.148 Patient's other noncompliance with medication regimen for other reason
CPT/HCPCS: 36415; 71045; 73030; 80048; 80053; 82948; 83735; 83880; 84100; 84484; 84550; 85025; 93005; G0378; J0360; J1644; J1940; J2405